=== PATIENT | female | born 1995 | race Caucasian/White ===

== ENCOUNTER → 2017-04-03 | Outpatient (CLI) | payer OTHER ==
[~2017-04-03] MED LIST: BCPILLS PO; ZTHM250 PO
--- NOTE | 2017-04-03 16:24 | DIAGNOSTIC IMAGING REPORT ---
ULTRASOUND L VENOUS DOPP LOWER EXT UNILAT CLINICAL HISTORY: LEFT LEG PAIN AND SWELLING COMPARISON STUDY: No previous studies for comparison. FINDINGS: Real-time and color flow Doppler imaging were performed. Flow was seen within the femoral, popliteal and calf veins with no intraluminal thrombus demonstrated. The saphenous vein is patent. IMPRESSION: No evidence of left lower extremity DVT. Electronically signed by: Zay Carrillo M.D. 04/03/2017 4:23 PM Dictated Date/Time: 04/03/2017 4:22 PM
== END | disposition home or self-care (01) ==
LOC: C.ULTR 15:35
PROVIDERS: ATTEND Physician Assistant
DX: M79.605 Pain in left leg (principal)

== ENCOUNTER 2017-04-15 19:16 | Emergency (ER) | payer OTHER ==
[~2017-04-15] VITALS: Ht 160 cm; Wt 62.7 kg
[~2017-04-15 19:16] MED LIST changes: +AZIT-57 PO; -ZTHM250 PO
[2017-04-15 19:32] VITALS: Ht 160 cm; Wt 62.7 kg
[2017-04-15] MEDS ORDERED: ACETAMINOPHEN 500 MG TAB PO STA (19:37)
[2017-04-15] MEDS ORDERED: ACETAMINOPHEN 500 MG TAB PO ONE (19:38)
[2017-04-15] MEDS ORDERED: SODIUM CHLORIDE 0.9% 1000ML 2,000 ML IV STA (20:18)
[2017-04-15 20:50] LABS: URINE APPEARANCE CLEAR (CLEAR); URINE BILIRUBIN NEG (NEG); URINE COLOR YELLOW; URINE EPITHELIAL CELL AUTO >30 /lpf (0-5); URINE NITRITE NEG (NEG); URINE SPECIFIC GRAVITY 1.023 (1.000-1.030); UROBILINOGEN POS (NEG)
[2017-04-15 20:58] LABS: BASO % 0.1 %; BASO ABS # 0.02 K/uL (0-0.2); COMPLETE YES; EOS % 0.1 %; HEMATOCRIT 36.7 % (37-47); IG% 0.3 %; LYMPH % 11.5 %; LYMPH ABS # 1.75 K/uL (1.2-3.4); MEAN CELL VOLUME 76.6 fL (80-100); MEAN CORPUSCULAR HEMOGLOBIN 25.7 pg (25-34); MEAN CORPUSCULAR HGB CONC 33.5 g/dl (32-36); MEAN PLATELET VOLUME 9.4 fL (7.4-10.4); PLATELET COUNT 235 K/uL (130-400); RED BLOOD COUNT 4.79 M/uL (4.2-5.4); WHITE BLOOD COUNT 15.24 K/uL (4.8-10.8)
--- NOTE | 2017-04-15 21:02 | DIAGNOSTIC IMAGING REPORT ---
TWO VIEW CHEST CLINICAL HISTORY: Cough and fever. FINDINGS: PA and lateral chest radiographs are compared to study dated 03/18/2016. The cardiomediastinal silhouette is unremarkable. The lungs and pleural spaces are clear. There is no pneumothorax. The bony thorax appears intact. There are bilateral nipple piercings. IMPRESSION: No active disease in the chest. Electronically signed by: Alphonso Viera M.D. 04/15/2017 9:00 PM Dictated Date/Time: 04/15/2017 9:00 PM
[2017-04-15 21:12] LABS: BUN/CREATININE RATIO 8.1 (10-20); CALCIUM 8.6 mg/dl (8.5-10.1); CREATININE 0.8 mg/dl (0.60-1.20); POTASSIUM 3.4 mmol/L (3.5-5.1)
[2017-04-15 21:14] LABS: ALB/GLOB RATIO 0.7 (0.9-2)
[2017-04-15 21:18] LABS: MANUAL MICROSCOPIC REQUIRED? NO; REVIEW REQ? YES
[2017-04-15] MEDS ORDERED: AMOXICILLIN/CLAVULANATE TAB 875 MG TAB PO ONE (22:00)
[2017-04-15] MEDS ORDERED: AMOX875T PO (22:04)
[2017-04-15] MEDS ORDERED: PRED50TA PO (22:04)
--- NOTE | 2017-04-15 22:05 | EMERGENCY ROOM VISIT NOTE ---
History First contact with patient: 19:59 Chief Complaint: FEVER Stated Complaint: SORE THROAT, CHILLS, STUFFED NOSE, COUGH, EAR PAIN History of Present Illness Patient is an otherwise healthy 21-year-old white female who presents to the emergency department for evaluation of upper respiratory symptoms 2 days. She reports her symptoms started gradually 2 days ago. She reports sore throat, nasal congestion, fever, chills, slight cough, and lightheadedness. She took her temperature this morning and it was 102F orally. She's been taking Tylenol , ibuprofen, Mucinex and NyQuil, without relief of her symptoms. She is a college student who lives in an apartment, she denies any specific sick contacts. Her last dose of ibuprofen was several hours ago. She had some left ear pain earlier but this has resolved. She denies any skin rashes or posterior neck pain or stiffness. She denies any nausea or vomiting. No urinary symptoms. She denies any chest pain. She rates her throat pain a 6/ 10. She states that her throat hurts on both sides symmetrically. She does have a history of throat infections. She has never been diagnosed with mono. Review of Systems Review of systems as per HPI. All other systems reviewed were negative. 10 systems reviewed. Past Medical/Surgical History Medical Problems: (1) Acute bronchitis (2) Cough (3) No Known Active Medical Problems Electronic medical records are reviewed and summarized as above/below. See Problem List. Social History Smoking Status: Never Smoker Drug Use: none Marital Status: single Housing Status: lives with roommate Occupation Status: [employer] student Current/Historical Medications Scheduled Amoxicillin & Pot Clavulanate (Augmentin 875-125 mg), 1 TAB PO BID Control Pills ( Control Pills), 1 TAB PO DAILY Prednisone (Prednisone), 50 MG PO DAILY Physical Exam Vital Signs Date Time Temp Pulse Resp B/P (MAP) Pulse Ox O2 Delivery O2 Flow Rate FiO2 04/15/17 22:17 36.7 104 18 109/72 100 04/15/17 20:59 37.2 107 18 103/68 100 Room Air 04/15/17 20:33 111 04/15/17 20:00 117 18 115/77 98 Room Air 04/15/17 19:32 39.4 141 18 95/62 98 Room Air Physical Exam MENTAL STATUS: Patient is an ill although nontoxic appearing 21-year-old white female who is awake and alert and in no acute distress. Temperature 39.4C orally in triage. Heart rate 141 beats per minute. HEAD: Atraumatic, without temporal or scalp tenderness. EYES: PERRL, EOMI, no discharge or injection. EARS: Tympanic membranes intact, not inflamed, have normal contour. External canals clear. NOSE: Nares patent, turbinates edematous and boggy with clear rhinorrhea. MOUTH: Mucous membranes moist, no lesions, tongue and gums appear normal. THROAT: Tonsils are erythematous, enlarged and swollen bilaterally with exudate noted. No trismus. Uvula is midline. Airway is patent. NECK: Supple, nontender, no nuchal rigidity. Bilateral cervical chain lymphadenopathy noted. HEART: Regular rate and rhythm without murmurs, ectopy, gallops, or rubs. LUNGS: Clear to auscultation and breath sounds equal, no wheezes, rales, or rhonchi. SKIN: Normal. NEUROLOGICAL: Sensory and motor functions grossly intact. Normal gait. Medical Decision & Procedures ER Provider Diagnostic Interpretation: TWO VIEW CHEST CLINICAL HISTORY: Cough and fever. FINDINGS: PA and lateral chest radiographs are compared to study dated 03/18/2016. The cardiomediastinal silhouette is unremarkable. The lungs and pleural spaces are clear. There is no pneumothorax. The bony thorax appears intact. There are bilateral nipple piercings. IMPRESSION: No active disease in the chest. Laboratory Results 04/15/17 20:30 Red Blood Count 4.79, Mean Corpuscular Volume 76.6, Mean Corpuscular Hemoglobin 25.7, Mean Corpuscular Hemoglobin Concent 33.5, Mean Platelet Volume 9.4, Neutrophils (%) (Auto) 78.0, Lymphocytes (%) (Auto) 11.5, Monocytes (%) (Auto) 10.0, Eosinophils (%) (Auto) 0.1, Basophils (%) (Auto) 0.1, Neutrophils # (Auto ) 11.89, Lymphocytes # (Auto) 1.75, Monocytes # (Auto) 1.52, Eosinophils # (Auto ) 0.02, Basophils # (Auto) 0.02 04/15/17 20:30 Test 04/15/17 20:30 White Blood Count 15.24 K/uL (4.8-10.8) Red Blood Count 4.79 M/uL (4.2-5.4) Hemoglobin 12.3 g/dL (12.0-16.0) Hematocrit 36.7 % (37-47) Mean Corpuscular Volume 76.6 fL (80-100) Mean Corpuscular Hemoglobin 25.7 pg (25-34) Mean Corpuscular Hemoglobin Concent 33.5 g/dl (32-36) Platelet Count 235 K/uL (130-400) Mean Platelet Volume 9.4 fL (7.4-10.4) Neutrophils (%) (Auto) 78.0 % Lymphocytes (%) (Auto) 11.5 % Monocytes (%) (Auto) 10.0 % Eosinophils (%) (Auto) 0.1 % Basophils (%) (Auto) 0.1 % Neutrophils # (Auto) 11.89 K/uL (1.4-6.5) Lymphocytes # (Auto) 1.75 K/uL (1.2-3.4) Monocytes # (Auto) 1.52 K/uL (0.11-0.59) Eosinophils # (Auto) 0.02 K/uL (0-0.5) Basophils # (Auto) 0.02 K/uL (0-0.2) RDW Standard Deviation 41.6 fL (36.4-46.3) RDW Coefficient of Variation 14.6 % (11.5-14.5) Immature Granulocyte % (Auto) 0.3 % Immature Granulocyte # (Auto) 0.04 K/uL (0.00-0.02) Urine Color YELLOW Urine Appearance CLEAR (CLEAR) Urine pH 7.0 (4.5-7.5) Urine Specific [place] 1.023 (1.000-1.030) Urine Protein 1+ (NEG) Urine Glucose (UA) NEG (NEG) Urine Ketones 3+ (NEG) Urine Occult Blood 2+ (NEG) Urine Nitrite NEG (NEG) Urine Bilirubin NEG (NEG) Urine Urobilinogen POS (NEG) Urine Leukocyte Esterase NEG (NEG) Urine WBC (Auto) 1-5 /hpf (0-5) Urine RBC (Auto) 0-4 /hpf (0-4) Urine Hyaline Casts (Auto) 1-5 /lpf (0-5) Urine Epithelial Cells (Auto) >30 /lpf (0-5) Urine Bacteria (Auto) NEG (NEG) Urine Renal Epithelial Cells /lpf (0-5) Urine Yeast (Auto) PRESENT (NONE PRSENT) Urine Test NEG (NEG) Anion Gap 8.0 mmol/L (3-11) Est Creatinine Clear Calc Drug Dose 93.5 ml/min Estimated GFR () 123.9 Estimated GFR (Non- 106.9 BUN/Creatinine Ratio 8.1 (10-20) Calcium Level 8.6 mg/dl (8.5-10.1) Total Bilirubin 0.2 mg/dl (0.2-1) Aspartate Amino Transf (AST/SGOT) 14 U/L (15-37) Alanine Aminotransferase (ALT/SGPT) 12 U/L (12-78) Alkaline Phosphatase 67 U/L (45-117) Total Protein 7.5 gm/dl (6.4-8.2) Albumin 3.2 gm/dl (3.4-5.0) Globulin 4.3 gm/dl (2.5-4.0) Albumin/Globulin Ratio 0.7 (0.9-2) Monoscreen NEG (NEG) Medications Administered Medications (Trade) Dose Ordered Sig/Merissa Route Start Time Stop Time Status Last Admin Dose Admin Acetaminophen (Tylenol Tab) 1,000 mg NOW STAT PO 04/15/17 19:37 04/15/17 19:38 DC 04/15/17 19:39 1,000 MG Sodium Chloride 2,000 ml @ 999 mls/hr Q2H1M STAT IV 04/15/17 20:18 04/15/17 22:18 DC 04/15/17 20:31 999 MLS/HR Amoxicillin/ Clavulanate Potassium (Augmentin Tab) 1,750 mg UD ONCE PO 04/15/17 22:00 04/15/17 22:01 DC 04/15/17 21:58 1,750 MG ED Course The patient was seen and evaluated as above. Old records were reviewed. The patient had been given 1 g of acetaminophen per critical pathways prior to my assessment of the patient. She also reported that she had taken 400 mg of ibuprofen prior to coming to the emergency department. At the time of initial evaluation, she was diaphoretic, febrile and tachycardic. IV lock was initiated. She is given a 2 L bolus of normal saline solution. CBC with differential, CMP, Monospot, urinalysis and urine tests were collected. Chest x-ray was performed. Laboratory studies noted a white count of 15,200, with left shift and bandemia. No gross electrolyte or liver function abnormalities are noted. Urinalysis noted 3+ urine ketones, otherwise was more indicative of contamination. Urine test was negative. Monospot was negative. Chest x-ray was clear. Laboratory and diagnostic imaging studies were reviewed with attending physician. Patient's vital signs were reassessed. She defervesced, and was afebrile. At discharge her temperature was 36.7C orally. After antipyretics and hydration, tachycardia improved heart rate was 104 at discharge. She was normotensive. The patient does have a fairly impressive exudative tonsillitis, with fever and cervical chain lymphadenopathy. She does also have some minor other upper respiratory symptoms. She does not have any evidence for pneumonia by chest x-ray. Differential diagnoses entertained included URI, strep pharyngitis, viral illness, bronchitis, sinusitis, tonsillitis, retropharyngeal or peritonsillar abscess, mononucleosis, among others. She does not have any physical exam findings to suspect meningitis or encephalitis. The patient will be placed on Augmentin and prednisone. Fever management using acetaminophen and ibuprofen was discussed. She was educated on the worrisome signs or symptoms for which she should return to the emergency department. The patient was discharged to home in good condition. Vital signs are stable. She rated her throat pain a 5/10 at discharge. Medical Decision See Emergency Department course. Medication Reconcilliation Current Medication List: was personally reviewed by ok Blood Pressure Screening Patient's blood pressure: Normal blood pressure Impression Primary Impression: Exudative tonsillitis Additional Impression: Acute febrile illness Departure Information Prescriptions Prednisone (Prednisone) 50 Mg Tab 50 MG PO DAILY for 5 Days, #5 TAB Prov: Amy Pereira PA 04/15/17 Amoxicillin & Pot Clavulanate (Augmentin 875-125 mg) 1 Tab Tab 1 TAB PO BID for 9 Days, #18 TAB Prov: Amy Pereira PA 04/15/17 Referrals No Doctor, Assigned (PCP) Patient Instructions [facility] Additional Instructions Amoxicillin Clavulanate (Augmentin) 875mg: Take one pill twice daily for 10 days for your bowel infection. All antibiotics can cause diarrhea. If this occurs and you feel worse or it does not resolve in 1-2 days follow up with your doctor or return to the Emergency Department as this could be signs of serious underlying problems. Any medication can cause an allergic reaction, stop the pills immediately and return to the ER for rash, hives, breathing difficulties, or swelling. Prednisone 50mg: Once daily until the prescription is finished. It is best to take this earlier in the day as some patients note occasional difficulty falling asleep when taken in the late evening. Ibuprofen(Motrin, Advil): may be used for fever or pain. Use 600mg every six hours as needed. Take with food. Avoid using more than 2400mg in a 24 hour period. Do not use 2400mg per day for more than three consecutive days without physician direction. Prolonged inappropriate use can lead to stomach upset or ulcers. This is available over the counter and typically comes in 200mg tablets. (AND/OR) Acetaminophen(Tylenol): may be used for fever or pain. Use 1000mg every eight hours as needed. Avoid using more than 3000mg in a 24 hour period. This is available over the counter. Afrin nasal spray: 2-3 sprays to each nostril twice daily as needed for congestion. Do not use for more than 3-4 days because it can lead to worsening rebound congestion. Sudafed and Mucinex as needed for congestion. Robitussin or Delsym as needed for cough. Read all the package inserts or medication information paperwork provided. If you have any questions or concerns call your primary provider, pharmacist or the ER for assistance. Rest and drink plenty of fluids. Controlling your fever with Tylenol and Ibuprofen as above will make you feel better. Continue current medications. Return to the ER for worsening throat pain (particularly one-sided), inability to swallow, persistent fevers, severe headache, neck stiffness, chest pain, difficulty breathing, vomiting, worsening of your condition, or as needed. Follow up with [facility] this week for a recheck of your current condition Problem Qualifiers
[2017-04-15 22:17] VITALS: BP 109/72; PULSE 104; TEMP 36.7; O2SAT 100
== END 2017-04-15 22:17 | disposition home or self-care (01) ==
LOC: C.EDB 19:17
DX: J03.90 Acute tonsillitis, unspecified (principal); R50.9 Fever, unspecified; Z79.3 Long term (current) use of hormonal contraceptives